=== PATIENT | male | born 1950 | race Caucasian/White ===

== ENCOUNTER 2016-12-09 02:50 | Observation (INO) ==
[2016-12-09] MEDS ORDERED: Ondansetron 4 MG/2 ML VIAL IVP ONE (02:57)
[2016-12-09] MEDS ORDERED: Ondansetron 4 MG/2 ML VIAL ONE (02:59)
--- NOTE | 2016-12-09 03:01 | Emergency Department Note ---
Disposition Clinical Impression: Confusion, Bradycardia Vomiting Qualifiers: Vomiting type: unspecified Vomiting Intractability: non-intractable Nausea presence: with nausea Qualified Code(s): R11.2 - Nausea with vomiting, unspecified Disposition: Admitted As Inpatient Condition: Good Forms: ED Satisfaction Letter Time of Disposition: 04:14 General Adult HPI - General Chief complaint: ED Weakness Stated complaint: weakness Nursing Notes Reviewed: Yes Vital Signs Reviewed: Yes - History of Present Illness HPI Narrative: Patient brought into emergency department by family. States about 10 minutes after he ate steak and shake he got disoriented had a hard time with his vision and driving. States that he got very diaphoretic and started vomiting. He denies any chest pain or shortness of breath. Daughter states He was disoriented at home. - Related Data Previous Rx's Medication Instructions Recorded Amoxicillin/Clavulanate [Augmentin] 500 mg PO TID #15 tablet 09/16/15 Allergies Allergy/AdvReac Type Severity Reaction Status Date / Time No Known Allergies Allergy Verified 12/09/16 03:20 All systems ED: reviewed and negative except as stated. Constitutional: Reports: chills. Denies: fever Eyes: Reports: vision change ENT ED: Denies: congestion Cardiovascular: Denies: chest pain, palpitations, syncope Respiratory: Denies: cough, dyspnea, wheezes Gastrointestinal: Reports: nausea, vomiting. Denies: abdominal pain, diarrhea, hematemesis, melena, hematochezia Genitourinary: Denies: urgency, dysuria, frequency, hematuria Musculoskeletal: Denies: back pain, neck pain Integumentary: Reports: other (Diaphoretic.). Denies: rash, abrasion Neurological: Reports: weakness. Denies: headache Past Medical History - Past Medical History Attestation: Yes The following information was validated with the patient. Medical history: Reports: GERD, hypertension Psychiatric history: Reports: no psych history - Social History Smoking Status: Never smoker Smokeless Tobacco Status: No Alcohol use: Reports: none Drug use: Reports: none Physical Exam - General Limitations: no limitations General appearance: alert, lethargic - Head Head exam: atraumatic, normocephalic, normal inspection - Eye Eye exam: Present: normal appearance, PERRL, EOMI, other (Patient does have fast beating leftward nystagmus.). Absent: scleral icterus, conjunctival injection - ENT ENT exam: normal exam, normal oropharynx, mucous membranes moist - Neck Neck exam: Present: normal inspection, full ROM, trachea midline. Absent: tenderness, meningismus - Chest Chest inspection: Present: normal inspection, symmetric chest wall rise. Absent : tenderness - Respiratory Respiratory exam: Present: normal lung sounds bilaterally. Absent: respiratory distress, wheezes - Cardiovascular Cardiovascular exam: Present: normal rhythm, bradycardia, normal heart sounds - Abdominal Exam Abdominal exam: Present: soft, Non-Tender, normal bowel sounds. Absent: tenderness, distention, guarding, rebound, rigidity - Extremities Exam Extremities exam: Present: normal inspection, full ROM, normal capillary refill. Absent: tenderness, pedal edema - Back Exam Back exam: Present: normal inspection, full ROM. Absent: tenderness, CVA tenderness (R), CVA tenderness (L) - Neurological Exam Neurological exam: Present: alert, oriented X3 - Psychiatric Psychiatric exam: Present: normal affect, normal mood - Skin Skin exam: Present: warm, normal color, diaphoresis. Absent: cyanosis Course Course Narrative: Patient reporting to the emergency department with daughter. States that he ate a portable hamburger at [employer] and [employer] and then started to feel funny approximately 10 minutes later. He states that his vision was altered. He cannot describe this. He did have vision he states it was not blurred. He states he had a funny feeling in his head. He states that he was having trouble driving. He states he pulled over at his daughter's house and got her to come help him out of the truck. She states that he was diaphoretic when she got to the he then began to vomit. She states it is very hard to get him to up and walk. Not acting appropriate. So they brought him to the emergency department. He has had several episodes of vomiting since then. He does appear disoriented and diaphoretic at this time. He does not appear in any respiratory distress. He is bradycardic and hypertensive. I am concerned for possible intercranial process. We will scan patient's head. We will also get a basic lab workup an EKG and a chest x-ray. - Reevaluation(s) Reevaluation #1: Patient was given Zofran head with CT was done and chest x-ray was done. Patient's lab work is grossly normal. He is mentating appropriately at this time. He states he is unaware of what happened earlier. He does remember the event and he blames this mostly on the portable mushrooms he ate a steak and shake. Patient is still bradycardic however his blood pressure has normalized. Patient states his vision is back to normal. He reports an episode of not being able to hear out of his left ear earlier today. His tympanic membranes are examined and found to be normal bilaterally. There is no effusions. He has good light reflex on both of them and they are pearly iverson. We will admit patient to the hospital for hypertension and bradycardia as well as an episode of confusion today. Patient does take lisinopril as well as carvedilol. Time: 04:03 - Consultations Consultation #1: accepted Pt in stable condition Time: 04:27 Vital Signs Temperature 97.7 F 12/09/16 02:51 Pulse Rate 45 12/09/16 02:51 Respiratory Rate 16 12/09/16 02:51 Blood Pressure 180/100 12/09/16 02:51 O2 Sat by Pulse Oximetry 96 12/09/16 02:51 Temperature 97.7 F 12/09/16 02:51 Pulse Rate 49 12/09/16 03:45 Respiratory Rate 16 12/09/16 03:45 Blood Pressure 147/82 12/09/16 03:45 O2 Sat by Pulse Oximetry 96 12/09/16 03:45 Oxygen Delivery Oxygen Delivery Nasal Cannula Medical Decision Making - Medical Records Medical records reviewed: Yes I reviewed the patient's medical records. - Lab Data Lab results reviewed: Yes I reviewed the patient's lab results. Result diagrams: 12/09/16 02:56 12/09/16 02:56 Lab Results 12/09/16 12/09/16 12/09/16 Range/Units 02:55 02:56 02:56 WBC 10.4 (4.3-11.1) K/mcL RBC 5.15 (4.19-5.50) M/mcL Hgb 15.1 (12.9-16.9) g/dL Hct 46.5 (37.5-50.1) % MCV 90.3 (83.0-100.0) fL MCH 29.3 (28.0-33.3) pg MCHC 32.5 (31.6-35.5) g/dL RDW 13.7 (11.5-14.5) % Plt Count 226 (140-400) K/mcL MPV 10.5 (9.4-12.4) fL Immature Gran % 0.9 (0-4) % Seg Neutrophils % 58.0 % Lymphocytes % 33.3 % Monocytes % 6.4 % Eosinophils % 1.0 % Basophils % 0.4 % Neutrophils # 6.1 (1.6-8.9) K/mcL Lymphocytes # 3.5 (0.6-4.6) K/mcL Monocytes # 0.7 (0.0-1.3) K/mcL Eosinophils # 0.1 (0.0-0.6) K/mcL Basophils # 0.0 (0.0-0.2) K/mcL Sodium 140 (136-145) mEq/L Potassium 3.7 (3.5-4.5) mEq/L Chloride 105 (98-109) mEq/L Carbon Dioxide 26 (19-29) mEq/L BUN 12 (8-26) mg/dL Creatinine 1.12 (0.72-1.25) mg/dL Est GFR ( Amer) > 60 (> 60) Est GFR (Non-Af Amer) > 60 (> 60) BUN/Creatinine Ratio 11 (6-26) Glucose 167 H (70-99) mg/dL POC Glucose 173 H (58-89) Calculated Osmolality 294 (280-300) Lactic Acid (0.5-2.2) mmol/L Calcium 9.3 (8.6-10.8) mg/dL Total Bilirubin 0.5 (0.2-1.2) mg/dL Direct Bilirubin (0.0-0.5) mg/dL Indirect Bilirubin (0.0-1.2) mg/dL AST 25 (5-34) Units/L ALT 20 (0-55) Units/L Alkaline Phosphatase 95 (38-126) Units/L Troponin I (0-0.03) ng/mL Serum Total Protein 7.2 (6.0-8.3) g/dL Albumin 3.8 (3.5-5.0) g/dL Globulin 3.4 (2.4-3.5) g/dL Albumin/Globulin Ratio 1.1 (1.1-2.2) 12/09/16 12/09/16 12/09/16 Range/Units 02:56 03:47 03:47 WBC (4.3-11.1) K/mcL RBC (4.19-5.50) M/mcL Hgb (12.9-16.9) g/dL Hct (37.5-50.1) % MCV (83.0-100.0) fL MCH (28.0-33.3) pg MCHC (31.6-35.5) g/dL RDW (11.5-14.5) % Plt Count (140-400) K/mcL MPV (9.4-12.4) fL Immature Gran % (0-4) % Seg Neutrophils % % Lymphocytes % % Monocytes % % Eosinophils % % Basophils % % Neutrophils # (1.6-8.9) K/mcL Lymphocytes # (0.6-4.6) K/mcL Monocytes # (0.0-1.3) K/mcL Eosinophils # (0.0-0.6) K/mcL Basophils # (0.0-0.2) K/mcL Sodium (136-145) mEq/L Potassium (3.5-4.5) mEq/L Chloride (98-109) mEq/L Carbon Dioxide (19-29) mEq/L BUN (8-26) mg/dL Creatinine (0.72-1.25) mg/dL Est GFR ( Amer) (> 60) Est GFR (Non-Af Amer) (> 60) BUN/Creatinine Ratio (6-26) Glucose (70-99) mg/dL POC Glucose (58-89) Calculated Osmolality (280-300) Lactic Acid 0.8 (0.5-2.2) mmol/L Calcium (8.6-10.8) mg/dL Total Bilirubin 0.4 (0.2-1.2) mg/dL Direct Bilirubin 0.2 (0.0-0.5) mg/dL Indirect Bilirubin 0.2 (0.0-1.2) mg/dL AST 23 (5-34) Units/L ALT 19 (0-55) Units/L Alkaline Phosphatase 88 (38-126) Units/L Troponin I 0.00 (0-0.03) ng/mL Serum Total Protein 6.8 (6.0-8.3) g/dL Albumin 3.7 (3.5-5.0) g/dL Globulin 3.1 (2.4-3.5) g/dL Albumin/Globulin Ratio 1.2 (1.1-2.2) - Radiology Data Radiology results reviewed: Yes I reviewed the patient's radiology results. Chest X-Ray 12/09/16 02:57 IMPRESSION: No acute disease. D/ / Andrew Perez MD / Andrew Perez MD Interpreting Provider: Andrew Perez MD Head CT 12/09/16 02:57 IMPRESSION: No acute intracranial abnormality. D/ / Holland Peña MD / Holland Peña MD Interpreting Provider: Holland Peña MD - EKG Data EKG #1 EKG attestation: Yes I reviewed and interpreted this EKG. EKG results narrative: Sinus bradycardia at a rate of 46. VA interval is 193. Confucianism is 110. QT is 449. QTC is 408. No blocks noted. No signs of acute ischemia. No significant changes from previous EKG dated 02/08/2012 with the exception of being bradycardic.
--- NOTE | 2016-12-09 03:05 | Emergency Department Note ---
START Narrative - START START: I examined this patient and my medical decision-making was reviewed with the BRIDGE TENDER/PA/Advanced Practice Nurse/Resident Physician. I agree with the documented findings, disposition and treatment plan as described except to the extent set forth below. ED attending note: Patient seen with emergency medicine resident Dr. Meeks. Please see a copy of his note for details of the H&P, evaluation, management and disposition of this patient. We independently had [id number] contact with the patient Briefly: A 66-year-old male by private vehicle weakness nausea and vomiting. One hour goes at steak and shake in eating then experienced nausea and vomiting several times spell probably was pale and diaphoretic. Slightly somnolent but arousable to voice here. With slight right upper quadrant tenderness spell but not diaphoretic. Noted bradycardia in the mid 40s but very hypertensive at 198/ 105. EKG shows sinus bradycardia without acute ischemic changes. Patient getting Zofran and fluids for his nausea LFTs and screening labs and a noncontrast head CT. Providing 45 minutes of critical care services for this patient. Disposition pending.
[2016-12-09 03:09] LABS: Basophils % 0.4 %; Eosinophils # 0.1 K/mcL (0.0-0.6); Hematocrit 46.5 % (37.5-50.1); Hemoglobin 15.1 g/dL (12.9-16.9); Immature Granulocytes % 0.9 % (0-4); Lymphocytes # 3.5 K/mcL (0.6-4.6); Lymphocytes % 33.3 %; Mean Corpuscular HGB Conc 32.5 g/dL (31.6-35.5); Mean Corpuscular Hemoglobin 29.3 pg (28.0-33.3); Mean Corpuscular Volume 90.3 fL (83.0-100.0); Mean Platelet Volume 10.5 fL (9.4-12.4); Monocytes # 0.7 K/mcL (0.0-1.3); Monocytes % 6.4 %; Neutrophils # 6.1 K/mcL (1.6-8.9); Platelet Count 226 K/mcL (140-400); Red Blood Count 5.15 M/mcL (4.19-5.50); Red Cell Distribution Width 13.7 % (11.5-14.5)
[2016-12-09 03:18] LABS: Alanine Aminotransferase 20 Units/L (0-55); Albumin 3.8 g/dL (3.5-5.0); Albumin/Globulin Ratio 1.1 (1.1-2.2); Alkaline Phosphatase 95 Units/L (38-126); Aspartate Amino Transferase 25 Units/L (5-34); BUN/Creatinine Ratio 11 (6-26); Bilirubin,Total 0.5 mg/dL (0.2-1.2); Blood Urea Nitrogen 12 mg/dL (8-26); Calcium 9.3 mg/dL (8.6-10.8); Carbon Dioxide 26 mEq/L (19-29); Chloride 105 mEq/L (98-109); Globulin 3.4 g/dL (2.4-3.5); Glucose 167 mg/dL (70-99); Osmolality,Calculated 294 (280-300); Potassium 3.7 mEq/L (3.5-4.5); Sodium 140 mEq/L (136-145); Total Protein 7.2 g/dL (6.0-8.3); eGFR For African Americans > 60 (> 60); eGFR For Non-African Americans > 60 (> 60)
[2016-12-09 04:08] LABS: Albumin 3.7 g/dL (3.5-5.0); Albumin/Globulin Ratio 1.2 (1.1-2.2); Bilirubin,Direct 0.2 mg/dL (0.0-0.5); Bilirubin,Indirect 0.2 mg/dL (0.0-1.2); Bilirubin,Total 0.4 mg/dL (0.2-1.2); Globulin 3.1 g/dL (2.4-3.5); Total Protein 6.8 g/dL (6.0-8.3)
[2016-12-09 04:42] LABS: Bilirubin,Urine Negative (Negative); Blood,Urine Negative (Negative); Clarity,Urine Clear (Clear); Color,Urine Yellow (Yellow); Glucose,Urine (UA) >=1000 mg/dL (Normal); Ketones,Urine Negative (Negative); Leukocyte Esterase,Urine Negative (Negative); Nitrite,Urine Negative (Negative); Protein,Urine Negative (Neg-Trace); Specific Gravity,Urine > 1.030 (1.010-1.025); Urobilinogen,Urine Normal (Normal)
[2016-12-09] MEDS ORDERED: Acetaminophen 325 MG TABLET PO PRN (06:06)
[2016-12-09] MEDS ORDERED: Ondansetron 4 MG/2 ML VIAL IVP PRN (06:06)
[2016-12-09] MEDS ORDERED: Naloxone 0.4 MG/ML INJ IVP PRN (06:06)
[2016-12-09] MEDS ORDERED: clonazePAM 0.5 MG TABLET PO PRN (06:15)
--- NOTE | 2016-12-09 06:26 | Internal Med History&Physical ---
Date of Encounter: 12/09/16 Time of Encounter: 06:20 Assessment and Plan (1) Vertigo Current visit: Yes Status: Acute Patient's symptoms seem suggestive of benign paroxysmal positional vertigo. Other causes in the differential although less likely include hypoglycemia, orthostatic hypotension, acute coronary syndrome. Blood sugars been stable the patient ate prior to the symptoms arising, orthostatic vital signs were negative , initial troponin was negative and EKG is unremarkable for ischemic changes. We will trend troponins. We will give meclizine when necessary. (2) Bradycardia Current visit: Yes Status: Acute The patient is bradycardic with her in the 50s however he states his heart rate normally runs low and his on beta jose for hypertension. Patient is asymptomatic at this time. Continue service counter cashier. Continue beta jose, hold for heart rate less than 50.. (3) Diabetes Current visit: Yes Status: Acute Most recent A1c is 6.0. Patient takes Invokana only at home. We will monitor blood sugars before meals and at bedtime, we will use low-dose sliding scale to cover for hyperglycemia. Qualifiers: Diabetes mellitus type: type 2 Diabetes mellitus complication status: without complication Diabetes mellitus termite inspector insulin use: without shelter use Qualified Code(s): E11.9 - Type 2 diabetes mellitus without complications (4) Hypertension Current visit: Yes Status: Acute Patient was hypertensive on arrival likely due to vomiting. Blood pressure has normalized. We will continue to monitor. Continue home medications. Qualifiers: Hypertension type: essential hypertension Qualified Code(s): I10 - Essential (primary) hypertension (5) GERD (gastroesophageal reflux disease) Current visit: Yes Status: Acute Stable. Continue PPI. Qualifiers: Esophagitis presence: esophagitis presence not specified Qualified Code(s) : K21.9 - Gastro-esophageal reflux disease without esophagitis (6) DVT prophylaxis Current visit: Yes Status: Acute Not indicated at this time as the patient is ambulatory anticipated length of stay less than 2 days. Internal Medicine - H&P: HPI Chief complaint: Dizziness Admitted From: Emergency Dept Plans for Post Hospital Care: Home History of present illness: Mr. Gresham is a 66 year old male with history of hypertension, GERD presents with dizziness. Patient states that he ate a mushroom burger steak and shake around on 1 this evening. About half hour later he went to the gas station and PUMPING gas started developing dizziness symptoms. He describes this as feeling unsteady on his feet. Patient states his symptoms worsened and he drove to his daughter's house where once he arrived he vomited once. Patient then came to the emergency department. At the time I examined the patient states he feels better. He denies any fever, chills, recent illness, chest pain , shortness of breath, abdominal pain, diarrhea, dysuria, difficulty urinating, lower extremity edema. Past Med Surg Social Fam HX - Past Medical History Medical history: diabetes, GERD, hypertension Psychiatric history: no psych history - Past Surgical History Surgical History: non-contributory - Social History Smoking Status: Never smoker Smokeless Tobacco Status: No Alcohol use: none Drug use: none - Family History Mother Hx Family Cardiac Disorders: (HTN, CHF) Hx Family Endocrine Disorder: (DM) Internal Medicine - H&P: Meds Amlodipine Besylate 10 mg PO 12/09/16 [History] Canagliflozin [Invokana] 300 mg PO 12/09/16 [History] Carvedilol [Coreg] 25 mg PO BID 12/09/16 [History] Esomeprazole Magnesium [Nexium] 40 mg PO 12/09/16 [History] Lipitor 20 PO DAILY 12/09/16 [History] Lisinopril [Zestril] 40 mg PO 12/09/16 [History] Sertraline [Zoloft] 100 mg PO DAILY 12/09/16 [History] clonazePAM [Klonopin] 0.5 mg PO BID 12/09/16 [History] Allergies No Known Allergies Allergy (Verified 12/09/16 03:20) All Systems PM: A 10-system review of systems was performed and is negative for pertinent findings except as documented above in the HPI. - Constitutional Constitutional: no chills, no fever(s) - EENT Eyes: no blurry vision, no change in vision Nose, mouth and throat: no sinus pain, no sinus pressure, no sore throat - Cardiovascular Cardiovascular ROS IM: diaphoresis, no chest pain, no dyspnea, no edema - Respiratory Respiratory: no cough, no chest congestion, no excessive phlegm production, no change in phlegm color - Gastrointestinal Gastrointestinal: nausea, vomiting, no abdominal pain, no diarrhea - Genitourinary Genitourinary ROS male: no difficulty urinating, no dysuria, no hematuria - Musculoskeletal Musculoskeletal ROS IM: no numbness, no tingling - Integumentary Integumentary IM: no erythema, no new lesions, no rash - Neurological Neurological ROS: disequilibrium, dizziness, vertigo, no focal weakness, no headache(s), no numbness, no tingling - Endocrine Endocrine IM: no polydipsia, no polyuria - Allergic/Immunologic Allergic/Immunologic: no tongue swelling, no throat swelling, no GI upset with certain foods - Constitutional Vitals: Temp Pulse Resp BP Pulse Ox 97.5 F L 53 17 126/80 98 12/09/16 05:13 12/09/16 05:13 12/09/16 05:13 12/09/16 05:55 12/09/16 05:21 General appearance: Present: A&O X 3, pleasant, no acute distress - Head Head exam: Present: atraumatic, normal inspection, normocephalic - Eye Eye exam: Present: EOMI, PERRL. Absent: nystagmus - ENT ENT exam: Present: mucous membranes moist, normal external ear exam, normal oropharynx, TM's normal bilaterally - Neck Neck exam general surgery: Present: full ROM. Absent: tenderness - Respiratory Respiratory exam: Present: CTAB. Absent: rales, rhonchi, wheezes - Cardiovascular Cardiovascular exam: Present: RRR. Absent: gallop, rubs, systolic murmur - GI/Abdominal GI/Abdominal exam: Present: normal bowel sounds, soft. Absent: tenderness - Extremities Exam Extremities exam: Present: warm. Absent: pedal edema, tenderness - Neurological Exam Neurological exam: Present: alert, CN II-XII intact, oriented X3, no focal deficits. Absent: strengths equal and symetr throughout - Skin Skin exam: Present: dry, intact, warm Internal Med - H&P Results - Labs CBC & Chem 7: 12/09/16 02:56 12/09/16 02:56
[2016-12-09 07:35] LABS: Thyroid Stimulating Hormone 5.262 mcIU/mL (0.350-4.840)
[2016-12-09] MEDS ORDERED: amLODIPine 5 MG TABLET PO SCH (09:00)
[2016-12-09] MEDS ORDERED: Lisinopril 20 MG TABLET PO SCH (09:00)
--- NOTE | 2016-12-09 09:23 | Discharge Summary ---
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, left ear (2) Vertigo Priority: Primary Status: Acute (3) Diabetes Priority: Secondary Status: Chronic Qualifiers: Diabetes mellitus type: type 2 Diabetes mellitus complication status: without complication Diabetes mellitus intermediate school teacher insulin use: without intermediate school teacher use Qualified Code(s): E11.9 - Type 2 diabetes mellitus without complications (4) Hypertension Priority: Secondary Status: Chronic Qualifiers: Hypertension type: essential hypertension Qualified Code(s): I10 - Essential (primary) hypertension (5) GERD (gastroesophageal reflux disease) Priority: Secondary Status: Chronic Qualifiers: Esophagitis presence: esophagitis presence not specified Qualified Code(s) : K21.9 - Gastro-esophageal reflux disease without esophagitis - Discharge Medications Home Medications: Amlodipine Besylate 10 mg PO DAILY 12/09/16 [History] Atorvastatin Calcium [Lipitor] 20 mg PO DAILY 12/09/16 [History] Canagliflozin [Invokana] 300 mg PO DAILY 12/09/16 [History] Carvedilol [Coreg] 25 mg PO BID 12/09/16 [History] Esomeprazole Magnesium [Nexium] 40 mg PO DAILY 12/09/16 [History] Lisinopril [Zestril] 40 mg PO DAILY 12/09/16 [History] Meclizine [Antivert] 12.5 mg PO TID PRN #30 tablet 12/09/16 [Rx] Sertraline [Zoloft] 100 mg PO DAILY 12/09/16 [History] clonazePAM [Klonopin] 0.5 mg PO BID 12/09/16 [History] Allergies/Adverse Reactions: Allergies No Known Allergies Allergy (Verified 12/09/16 03:20) Procedures/tests Complete & Pending: Procedures Performed prior 72 hours Category Date Time Status MR head/brain wo con [MR] Routine MRI 12/09/16 07:48 Ordered Date of admission: 12/09/16 04:31 Primary care physician: Kai Pepper MD Consults: 12/09/16 07:48 Consult to ENT [CONS] Routine Consulting Provider: ENT Rosa Maria Reason for Consult: VErtigo Call Completed: No Discharging clinician: Murtaza Juares Anticipated date of discharge: 12/09/16 - Patient Status Disposition: Home, Self-Care Condition: Good Functional capacity at discharge: independent ambulation Overall status at discharge: patient is back to baseline - Discharge Instructions Follow Up With: Gigi Combs MD [Partnered Physician] - 01/14/17 8:30 am (Please follow up as schedule...) Kai Pepper MD [Primary Care Provider] - 12/16/16 9:20 am (Web requested ) Additional Instructions: MAKE APPOINTMENT WITH ENT - Diet and Activity Activity: resume usual activities as tolerated Interval History: See below Hospital course: Mr. Gresham is a 66 year old male with HTN, DM, GERD Admitted to observation for evaluation for Vertigo Patient has also hearing difficulty on the left ear, tinnitus for several years and hx of recurrent chronic otitis media NEurologic exam was unremarkable for ataxia or Nystagmus CBC, Chem WNL Head CT /Brain MRI with no acute chnager PT/OT has evaluated patient with no current needs or gait aids ENT was consulted but there is no service in-patient for today Patient has opted to visit ENT as out-patient He improved with Meclizine, discharged on same Follow up with ENT and PCP Other chronic conditions are stable Plan of care discussed with patient, verbalized understanding - Time Spent with Patient Total time spent providing and/or coordinating discharge services: Less than 30 minutes - Constitutional Vitals: Temp Pulse Resp BP Pulse Ox 97.7 F 58 16 133/76 94 12/09/16 07:48 12/09/16 07:48 12/09/16 07:48 12/09/16 07:48 12/09/16 07:48 General appearance: Present: A&O X 3, pleasant, no acute distress - Head Head exam: Present: atraumatic, normocephalic - Eye Eye exam: Present: PERRL, conjuntiva pink, sclera anicteric. Absent: nystagmus Pupils: Present: PERRL - ENT ENT exam: Present: normal external ear exam - Neck Neck exam general surgery: Present: supple, trachea midline. Absent: lymphadenopathy - Respiratory Respiratory exam: Present: CTAB. Absent: accessory muscle use, rales, rhonchi, wheezes - Cardiovascular Cardiovascular exam: Present: RRR, +S1, +S2. Absent: diastolic murmur, gallop, rubs, systolic murmur - GI/Abdominal GI/Abdominal exam: Present: normal bowel sounds, soft, no peritoneal signs. Absent: distended, tenderness - Extremities Exam Extremities exam: Present: warm, radial pulses palpable and symetrical. Absent : calf tenderness, cyanotic, pedal edema - Neurological Exam Neurological exam: Present: alert, CN II-XII intact, oriented X3, no focal deficits. Absent: pronater drift, facial droop, speech deficit - Skin Skin exam: Present: dry, intact - VTE Reasons for not Prescribing Prophylaxis: Treatment not Indicated - Low risk for VTE
[2016-12-09 16:07] VITALS: BP 160/94
--- NOTE | 2016-12-09 20:23 | Electrocardiograph Report ---
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
== END 2016-12-09 17:01 | disposition home or self-care (01) ==
LOC: 2ANU 02:50 → EMEROO 02:50 → SUATTDRO 04:31 → 2ANU 04:45
PROVIDERS: ADMIT Internal Medicine; ATTEND Internal Medicine

== ENCOUNTER 2021-12-29 10:27 | Inpatient (IN) ==
[2021-12-29] MEDS ORDERED: Iopamidol - 370 500 ML MLS IVP ONE (10:36)
[2021-12-29 10:47] LABS: Hematocrit 40.8 % (37.5-50.1); Hemoglobin 13.9 g/dL (12.9-16.9); Mean Corpuscular HGB Conc 34.1 g/dL (31.6-35.5); Mean Corpuscular Hemoglobin 30.1 pg (28.0-33.3); Mean Corpuscular Volume 88.3 fL (83.0-100.0); Mean Platelet Volume 10.9 fL (9.4-12.4); Platelet Count 182 K/mcL (140-400); Red Blood Count 4.62 M/mcL (4.19-5.50); Red Cell Distribution Width 13.4 % (11.5-14.5); White Blood Count 7.6 K/mcL (4.3-11.1)
[2021-12-29 10:57] LABS: INR 0.9; Prothrombin Time 10.4 Seconds (9.4-12.1)
[2021-12-29 11:00] LABS: Activated Partial Thrombo Time 32.5 Seconds (26.0-36.0)
[2021-12-29] MEDS ORDERED: Ondansetron 4 MG/2 ML VIAL IVP ONE (11:01)
[2021-12-29 11:11] LABS: BUN/Creatinine Ratio 15 (6-26); Blood Urea Nitrogen 15 mg/dL (8-23); Calcium 8.7 mg/dL (8.6-10.3); Carbon Dioxide 27 mEq/L (23-29); Chloride 104 mEq/L (98-107); Glucose 276 mg/dL (70-105); Osmolality,Calculated 297 (280-300); Potassium 3.7 mEq/L (3.5-5.1); Sodium 138 mEq/L (136-145); eGFR For African Americans > 60 (> 60); eGFR For Non-African Americans > 60 (> 60)
[2021-12-29 11:12] LABS: Troponin I < 0.03 ng/mL (< 0.04)
[2021-12-29] MEDS ORDERED: *HR* Labetalol 20 MG/4 ML SYRINGE IVP ONE (11:20)
[2021-12-29] MEDS ORDERED: *HR* Dextrose 50 % in Water (Syg) 50 ML SYRINGE IVP PRN (11:41)
[2021-12-29] MEDS ORDERED: Dextrose Gel 15 GM/37.5 ML TUBE PO PRN ×2 (11:41)
[2021-12-29] MEDS ORDERED: D5% in Water 1,000 ML IVC PRN (11:41)
[2021-12-29] MEDS ORDERED: Perflutren Lipid Microsphere 1.3 ML in 0.9 % Sodium Chloride 8.7 ML IVP PRN (11:45)
[2021-12-29] MEDS ORDERED: Ondansetron 4 MG/2 ML VIAL IVP PRN (11:46)
[2021-12-29 12:51] LABS: Bilirubin,Urine Negative (Negative); Blood,Urine Negative (Negative); Clarity,Urine Clear (Clear); Color,Urine Light-Yellow (Yellow); Glucose,Urine (UA) >=1000 mg/dL (Normal); Ketones,Urine Negative (Negative); Leukocyte Esterase,Urine Negative (Negative); Mucus,Urine Few per lpf (None-Few); Nitrite,Urine Negative (Negative); Protein,Urine 50 mg/dL (Neg-Trace); RBC,Urine 0-3 per hpf (0-3); Specific Gravity,Urine > 1.030 (1.010-1.025); Squamous Epithelial Cell,Urine Few per hpf (None-Few); Urobilinogen,Urine Normal (Normal); WBC,Urine 0-3 per hpf (0-3)
[2021-12-29 13:39] LABS: Amphetamine Screen,Urine Negative ng/mL (Cutoff=1000); Barbiturate Screen,Urine Negative ng/mL (Cutoff=200); Benzodiazepines Screen,Urine Negative ng/mL (Cutoff=200); Cannabinoid Screen,Urine Positive ng/mL (Cutoff = 50); Cocaine Screen,Urine Negative ng/mL (Cutoff= 300); Opiate Screen,Urine Negative ng/mL (Cutoff=300); Phencyclidine Screen,Urine Negative ng/mL (Cutoff=25)
[2021-12-29] MEDS ORDERED: Ringers Solution, Lactated 1,000 ML IVC SCH (14:30)
[2021-12-29] MEDS ORDERED: *HR* LORazepam 2 MG/ML VIAL IVP ONE (16:17)
[2021-12-29] MEDS: Insulin LISPRO 300 UNITS/3 ML VIAL SUBQ SCH ×2 (17:07→20:15)
[2021-12-29] MEDS: *HR* Labetalol 20 MG/4 ML SYRINGE IVP PRN (20:11)
[2021-12-29] MEDS: clonazePAM 0.5 MG TABLET PO SCH (20:38)
[2021-12-29] MEDS: traZODone 50 MG TABLET PO PRN (23:35)
[2021-12-30 05:40] LABS: INR 1.1; Prothrombin Time 11.9 Seconds (9.4-12.1)
[2021-12-30] MEDS: *HR* Enoxaparin 40 MG/0.4 ML SYRINGE SQ SCH (05:46)
[2021-12-30 06:00] LABS: Alanine Aminotransferase 15 Units/L (7-52); Albumin 3.9 g/dL (3.5-5.7); Albumin/Globulin Ratio 1.6 (1.1-2.2); Alkaline Phosphatase 64 Units/L (34-104); Aspartate Amino Transferase 22 Units/L (13-39); BUN/Creatinine Ratio 12 (6-26); Bilirubin,Total 0.7 mg/dL (0.3-1.0); Blood Urea Nitrogen 10 mg/dL (8-23); Calcium 8.6 mg/dL (8.6-10.3); Carbon Dioxide 28 mEq/L (23-29); Chloride 103 mEq/L (98-107); Chol/HDL Ratio 6.5 (0-4.9); Cholesterol 209 mg/dL (< 200); Globulin 2.5 g/dL (2.4-3.5); Glucose 202 mg/dL (70-105); HDL Cholesterol 32 mg/dL (40-59); LDL Cholesterol,Calculated 127 mg/dL (< 100); Osmolality,Calculated 289 (280-300); Potassium 3.5 mEq/L (3.5-5.1); Sodium 137 mEq/L (136-145); Total Protein 6.4 g/dL (6.4-8.9); Triglycerides 250 mg/dL (< 150); eGFR For African Americans > 60 (> 60); eGFR For Non-African Americans > 60 (> 60)
[2021-12-30 08:41] LABS: Estimated Average Glucose 255 mg/dl; Hemoglobin A1C 10.5 %
[2021-12-30] MEDS: clonazePAM 0.5 MG TABLET PO SCH ×2 (08:42→21:12)
[2021-12-30] MEDS: Insulin LISPRO 300 UNITS/3 ML VIAL SUBQ SCH ×4 (08:42→21:13)
[2021-12-30] MEDS: Acetaminophen 325 MG TABLET PO PRN (10:34)
[2021-12-30] MEDS: Aspirin Enteric Coated 325 MG Tablet PO ONE ×2 (11:43→11:44)
[2021-12-30] MEDS: *HR* Labetalol 20 MG/4 ML SYRINGE IVP PRN (11:45)
[2021-12-30] MEDS: carvediloL 25 MG TABLET PO SCH ×2 (12:20→16:22)
[2021-12-30] MEDS: lisinopriL 20 MG TABLET PO SCH ×2 (12:21→21:12)
[2021-12-30] MEDS ORDERED: *HR* LORazepam 0.5 MG TABLET PO ONE (16:08)
[2021-12-30] MEDS: Insulin DETEMIR 100 UNIT/ML X5UNITS SUBQ SCH (21:13)
[2021-12-31] MEDS ORDERED: *HR* LORazepam 2 MG/ML VIAL IVP ONE (04:03)
[2021-12-31] MEDS: *HR* Labetalol 20 MG/4 ML SYRINGE IVP PRN ×2 (04:37→23:12)
[2021-12-31] MEDS: *HR* Enoxaparin 40 MG/0.4 ML SYRINGE SQ SCH (04:39)
[2021-12-31] MEDS: Aspirin 81 MG TAB.CHEW PO SCH (08:50)
[2021-12-31] MEDS: lisinopriL 20 MG TABLET PO SCH ×2 (08:50→20:59)
[2021-12-31] MEDS: clonazePAM 0.5 MG TABLET PO SCH ×2 (08:50→21:00)
[2021-12-31] MEDS: carvediloL 25 MG TABLET PO SCH ×2 (08:50→17:29)
[2021-12-31] MEDS: Insulin LISPRO 300 UNITS/3 ML VIAL SUBQ SCH ×4 (08:53→21:02)
[2021-12-31] MEDS: Acetaminophen 325 MG TABLET PO PRN (12:49)
[2021-12-31] MEDS: Saline Nasal Spray 44 ML BOTTLE NS PRN ×2 (14:45→17:28)
[2021-12-31] MEDS: cloNIDine HCL 0.1 MG TABLET PO SCH (18:51)
[2021-12-31] MEDS: traZODone 50 MG TABLET PO PRN (20:59)
[2021-12-31] MEDS: Insulin DETEMIR 100 UNIT/ML X5UNITS SUBQ SCH (21:02)
[2021-12-31] MEDS ORDERED: clonazePAM 1 MG TABLET PO ONE (23:24)
[2022-01-01] MEDS ORDERED: *HR* Labetalol 20 MG/4 ML SYRINGE IVP ONE (02:09)
[2022-01-01] MEDS ORDERED: traZODone 50 MG TABLET PO ONE (03:29)
[2022-01-01] MEDS: *HR* Enoxaparin 40 MG/0.4 ML SYRINGE SQ SCH (03:42)
[2022-01-01 06:32] VITALS: PULSE 67
[2022-01-01] MEDS: clonazePAM 0.5 MG TABLET PO SCH (08:04)
[2022-01-01] MEDS: lisinopriL 20 MG TABLET PO SCH (08:04)
[2022-01-01] MEDS: Aspirin 81 MG TAB.CHEW PO SCH (08:04)
[2022-01-01] MEDS: cloNIDine HCL 0.1 MG TABLET PO SCH (08:05)
[2022-01-01] MEDS: carvediloL 25 MG TABLET PO SCH (08:05)
[2022-01-01] MEDS: Insulin LISPRO 300 UNITS/3 ML VIAL SUBQ SCH (08:07)
[2022-01-01 09:33] LABS: Adenovirus Not Detected (Not Detect); Coronavirus 229E Not Detected (Not Detect); Coronavirus HKU1 Not Detected (Not Detect); Coronavirus NL63 Not Detected (Not Detect); Coronavirus OC43 Not Detected (Not Detect); Human Rhinovirus/Enterovirus DETECTED (Not Detect); SARS-CoV-2 Not Detected (Not Detect)
[2022-01-01 09:34] LABS: Bordetella Pertussis Not Detected (Not Detect); Chlamydophila pneumoniae Not Detected (Not Detect); Human Metapneumovirus Not Detected (Not Detect); Influenza A Subtype 2009 H1 Not Detected (Not Detect); Influenza B Not Detected (Not Detect); Mycoplasma pneumoniae Not Detected (Not Detect); Parainfluenza Virus 1 Not Detected (Not Detect); Parainfluenza Virus 2 Not Detected (Not Detect); Parainfluenza Virus 3 Not Detected (Not Detect); Parainfluenza Virus 4 Not Detected (Not Detect); Respiratory Syncytial Virus Not Detected (Not Detect)
[2022-01-01 10:25] VITALS: BP 113/68; TEMP 98.1; O2SAT 91
== END 2022-01-01 11:29 | disposition other institution (70) | DRG 65 ==
LOC: EMEROOARM 10:27 → 3BNU 10:27 → SUATTDRO 14:08 → 3BNU 15:08
PROVIDERS: ADMIT Student in an Organized Health Care Education/Training Program; ATTEND Registered Nurse